=== PATIENT | male | born 1955 | race Caucasian/White ===

== ENCOUNTER 2020-03-15 07:40 | Outpatient (CLI) | payer BC, OTHER ==
[2020-03-15 18:03] LABS: #Eosinphils 0.2 thou/uL (0.0-0.7); #Lymphocytes 1.8 thou/uL (1.20-3.40); #Neutrophils 5.4 thou/uL (1.40-6.50); %Basophils 0.4 % (0.0-1.0); %Eosinophils 2.4 % (0.0-10.0); %Lymphocytes 21.4 % (21.0-51.0); %Monocytes 11.4 % (0.0-10.0); %Neutrophils 64.4 % (42.0-75.0); Hemoglobin 14.1 g/dL (14.0-18.0); Mean Corpuscular HGB CONC 34.2 g/dL (32.0-36.0); Mean Corpuscular Hemoglobin 32.4 pg (27.0-31.0); Mean Corpuscular Volume 94.6 fL (78.0-98.0); Mean Platelet Volume 7.4 fL (7.4-10.4); Platelet Count 216 thou/uL (130-400); RBC Distribution Width 11.5 % (11.5-14.5); Red Blood Cell (RBC) Count 4.35 mill/uL (4.70-6.10); White Blood Cell (WBC) Count 8.3 thou/uL (4.8-10.8)
[2020-03-15 18:39] LABS: Anion Gap 14 mmol/L (10-20); BUN (Urea Nitrogen) 19 mg/dL (8.4-25.7); Calc. Creatinine Clearance 0 mL/min (70-130); Carbon Dioxide 23 mmol/L (23-31); Chloride 108 mmol/L (98-107); Estimated GFR-MDRD 62; Glucose 93 mg/dL (80-115); Sodium 140 mmol/L (136-145)
[2020-03-16 15:22] LABS: SARS-CoV-2 MS2 Positive; SARS-CoV-2 N Gene Negative; SARS-CoV-2 S Gene Negative; SARS-CoV-2 by NAA Not Detected (NotDetected); SARS-CoV-2 orf1ab Negative
--- NOTE | 2020-03-18 17:28 | EKG ---
Test Reason : Blood Pressure : / mmHG Vent. Rate : 073 BPM Atrial Rate : 073 BPM P-R Int : 116 ms QRS Dur : 090 ms QT Int : 378 ms P-R-T Axes : 068 068 042 degrees QTc Int : 416 ms Normal sinus rhythm with sinus arrhythmia Minimal voltage criteria for LVH, may be normal variant Nonspecific T wave abnormality Abnormal ECG No previous ECGs available Confirmed by DR. Grace MORGAN ([id number]) on 03/18/2020 5:28:30 PM Referred By: IERO Confirmed By:DR. Grace MORGAN
== END 2020-03-15 07:41 | disposition home or self-care (01) ==
LOC: LABBT 07:40
PROVIDERS: ATTEND Orthopaedic Surgery
DX: Z01.818 Encounter for other preprocedural examination (principal); S82.61XA Displaced fracture of lateral malleolus of right fibula, initial encounter for closed fracture; Z20.828 Contact with and (suspected) exposure to other viral communicable diseases
CPT/HCPCS: 80048; 85025; 87635; 93005; 93010; U0003

== ENCOUNTER 2020-03-20 06:16 | Day surgery (SDC) | payer BC ==
[2020-03-19 10:50] VITALS: BMI 27.4
[2020-03-20] MEDS ORDERED: Fentanyl 100 MCG/2 ML VIAL ONE ×2 (06:45→06:46)
[2020-03-20] MEDS ORDERED: Midazolam HCl 2 mg/2 ml Vial ONE (06:45)
[2020-03-20] MEDS ORDERED: Lidocaine 1% (PF) 30 ML VIAL ONE (07:48)
[2020-03-20] MEDS ORDERED: methylPREDNISolone Acetate 40 mg/ml Vial ONE (07:48)
[2020-03-20] MEDS ORDERED: Lidocaine 1% w/Epinephrine 1:100K 20 ML VIAL ONE (07:57)
--- NOTE | 2020-03-20 09:22 | RAD ---
Exam:Intraoperative fluoroscopy HISTORY: ORIF of ankle fracture Exposure: 6.7 seconds, 0.29 mm gayle COMPARISON: None FINDINGS: 3 intraoperative fluoroscopic images demonstrate ORIF of a medial malleolus, distal fibula and lateral malleolus fractures. Near anatomic alignment. IMPRESSION: Intraoperative fluoroscopy.
[2020-03-20] MEDS ORDERED: PROPOFOL 200 MG/20 ML VIAL ONE (10:45)
[2020-03-20] MEDS ORDERED: Lidocaine 1% PF 5 ML VIAL ONE (10:45)
[2020-03-20] MEDS ORDERED: Dexamethasone 20 MG/5 ML VIAL ONE (10:45)
[2020-03-20] MEDS ORDERED: PHENYLEPHRINE-NS 100 MCG/ML 10 ML SYRINGE ONE (10:45)
[2020-03-20] MEDS ORDERED: Bupivacaine HCl 0.5%/Epinephrine 1:200,000/PF 30 ml Vial ONE (10:45)
[2020-03-20] MEDS ORDERED: EPHEDRINE 25 MG/5 ML SYRINGE ONE (10:45)
[2020-03-20] MEDS ORDERED: Ondansetron PF 4 MG/2 ML Vial ONE (10:45)
[2020-03-20] MEDS ORDERED: Ketorolac Tromethamine 30 MG/ML VIAL ONE (10:45)
--- NOTE | 2020-03-20 16:02 | OP ---
DATE OF PROCEDURE: 03/20/2020 PREOPERATIVE DIAGNOSES: 1. Right closed trimalleolar ankle fracture. 2. Bilateral knee effusions, right greater than left. POSTOPERATIVE DIAGNOSES: 1. Right closed trimalleolar ankle fracture. 2. Bilateral knee effusions, right greater than left. PROCEDURES PERFORMED: 1. Open reduction and internal fixation of right trimalleolar ankle fracture without fixation of posterior lip. 2. Right knee aspiration. 3. Left knee aspiration followed by injection of corticosteroid in left knee. 4. Placement of short-leg posterior splint, right lower extremity. MACHINE SKIVER: Kennedy Rabago PA-C. The kindergarten teacher assistant surgeon was present throughout the procedure to include the approach, fixation of the fracture as well as closure and placement of splint postoperative. ANESTHESIA: The patient had general anesthetic as well as preoperative block. IMPLANTS: We used 2 cannulated 3.5 mm Synthe[employer] titanium partially-threaded screws for the medial malleolus. We used a fibular locking plate with multiple screws laterally for the fibula. DISPOSITION: He went to recovery room in stable condition. INDICATIONS FOR PROCEDURE: This is a 64-year-old male who presented after being thrown off a horse about a week ago for fixation of an ankle fracture. Unfortunately, he continues to also have some issues with both knee swelling and he wished to have those aspirated at the same time. DESCRIPTION OF PROCEDURE: After all appropriate consent forms were explained and signed, he was taken back to the operating room and at this time was given general anesthetic. Once the level of anesthesia was appropriate, the right knee was cleaned off with alcohol. An 18-gauge needle was then used to aspirate approximately 35 mL of dark venous blood from the suprapatellar pouch. It was felt at this time that would not be appropriate to inject this with corticosteroid. A Band-Aid was applied. We then turned our attention to the left knee. Again, it was cleaned off with alcohol. At this time, about 8 mL of bloody joint fluid was removed, but it appeared to be much older. At this time once this was aspirated, we went ahead and injected 80 mg of Depo-Medrol with local into the knee joint. Again, a Band-Aid was applied. At this time, tourniquet was placed in the right thigh. Right lower extremity was prepped and draped in standard surgical fashion. Limb was exsanguinated and tourniquet was taken to 300 mmHg. A lateral incision was made down through skin. Bovie was used to coagulate any brisk venous bleeding. The fracture was noted and cleaned out with a curette and irrigation. The periosteum was incised in the middle of the fibula. Periosteal elevator was used to elevate this anterior and posterior to give us a place to place a plate. At this time, reduction was performed using line Lion-Jaw clamp. A lag screw technique was used and a 3.5 fully-threaded cortical screw was placed across the fracture line. Lion-Jaw was removed. Fracture was stable. The fibular locking plate was then placed onto the fibula. We placed 3 bicortical screws proximal to the fracture and multiple locking screws distal. Once this was done, the C-arm was brought in to confirm this reduction. We then turned our attention to the medial side. An oblique incision was made down through skin. Bovie was used to clear any brisk venous bleeding. Scissor dissection was used to dissect through the soft tissue, being careful of the saphenous vein. We gained access to our fracture line. Soft tissue was removed from around the fracture line, so a piece of periosteum was removed from inside the fracture line and Hohmann retractor was used to gain access to our joint. We then thoroughly irrigated and cleaned out the fracture line with curette. The joint was cleaned out. At this time, manual reduction was performed and once it was anatomic, 2 threaded guidewires with 3.5 mm cannulated screw were placed. We then drilled through the first cortex. We then placed 2 partially-threaded 3.5 mm cannulated titanium screws across the medial malleolar fracture. This gave us excellent fixation. C-arm was then brought in AP, mortise and lateral views to confirm anatomic reduction, and also confirmed that there was no need to fixate our posterior lip fracture as this was an anatomic position as well. At this time, we then thoroughly irrigated and dried both wounds. Then, we used deep Vicryl followed by 2-0 Vicryl and then sutures and rachel to close our incisions. Bulky sterile dressing was then applied and a posterior short-leg splint was placed onto the right lower extremity. This was placed in the 90-degree position until dried. At this time, the patient was then awakened and was taken to recovery room in stable condition. All counts were correct at the end of the case and he did receive preoperative IV antibiotics. Job ID: [id number] [id number]
== END 2020-03-20 11:50 | disposition home or self-care (01) ==
LOC: SDC 06:16
PROVIDERS: ATTEND Orthopaedic Surgery
PROC: 0QSG04Z Reposition Right Tibia with Internal Fixation Device, Open Approach (ICD-10-PCS; principal; 2020-03-20)
PROC: 0S9C3ZZ Drainage of Right Knee Joint, Percutaneous Approach (ICD-10-PCS; principal; 2020-03-20)
PROC: 0S9D3ZZ Drainage of Left Knee Joint, Percutaneous Approach (ICD-10-PCS; principal; 2020-03-20)
PROC: 3E0U33Z Introduction of Anti-inflammatory into Joints, Percutaneous Approach (ICD-10-PCS; principal; 2020-03-20)
PROC: 0QSJ04Z Reposition Right Fibula with Internal Fixation Device, Open Approach (ICD-10-PCS; principal; 2020-03-20)
DX: S82.851A Displaced trimalleolar fracture of right lower leg, initial encounter for closed fracture (principal); M25.462 Effusion, left knee; M25.461 Effusion, right knee; Z87.891 Personal history of nicotine dependence; V80.010A Animal-rider injured by fall from or being thrown from horse in noncollision accident, initial encounter
CPT/HCPCS: 76000; C1713; C1769; J0690; J1100; J1885; J2001; J2250; J2405; J2704; J2920; J3010